=== PATIENT | male | born 1975 | race Caucasian/White ===

== ENCOUNTER 2018-11-08 20:10 | Emergency (ER) | payer SELFPAY ==
[~2018-11-08] VITALS: Ht 172.7 cm; Wt 71.2 kg
[2018-11-08 21:05] VITALS: Ht 172.7 cm; Wt 71.2 kg
[2018-11-08 22:34] VITALS: BP 100/60
== END 2018-11-08 22:34 | disposition home or self-care (01) ==
LOC: ED 20:10
DX: L70.9 Acne, unspecified (principal); F17.210 Nicotine dependence, cigarettes, uncomplicated